=== PATIENT | female | born 1985 | race Caucasian/White ===

== ENCOUNTER 2018-04-05 09:26 | Emergency (ER) | payer OTHER ==
[~2018-04-05] VITALS: Ht 157.5 cm; Wt 129.3 kg
[~2018-04-05 09:26] MED LIST: NAPROXEN500 M2 PO
[2018-04-05 09:56] VITALS: BP 112/76
--- NOTE | 2018-04-05 10:32 | RADIOLOGY REPORT ---
EXAMINATION: XR CHEST CLINICAL INFORMATION: Shortness of breath and productive cough for 3 weeks. Denies chance of . Rule out bronchitis versus pneumonia. COMPARISON: None TECHNIQUE: 2 views of the chest were obtained. FINDINGS: The cardiomediastinal silhouette is within normal limits in size. Lungs bilaterally are symmetrically expanded and clear. No focal consolidation, effusion or pneumothorax is seen. Bony structures are unremarkable. IMPRESSION: Unremarkable examination. No evidence of pneumonia.
--- NOTE | 2018-04-05 12:09 | ED INFLUENZA/URI COMPLAINT ---
History of Present Illness General Chief Complaint: General Adult Stated Complaint: COUGH X 3 WEEKS Source: patient Exam Limitations: no limitations Vital Signs & Intake/Output Vital Signs & Intake/Output Vital Signs Date Time Temp Pulse Resp B/P B/P Pulse O2 O2 Flow FiO2 Mean Ox Delivery Rate 04/05 1214 98 Room Air 04/05 0956 98.1 68 18 112/76 98 Room Air Allergies Coded Allergies: No Known Allergies (03/15/16) Reconcile Medications Benzonatate (Tessalon Perle) 100 MG CAPSULE 1 CAP PO TID cough Fluticasone Propionate (Flonase Allergy Relief) 50 MCG/ACTUATION SPRAY.SUSP 1 SPRAY NASB DAILY allergies Naproxen 500 MG TABLET 1 TAB PO BID PRN pain/swelling Polymyxin B Sulf/Trimethoprim (Polymyxin B-Tmp Eye Drops) 10,000 UNIT-1 MG/ML DROPS 1 GTT OPH TID conjunctivitis Prednisone 20 MG TABLET 1 TAB PO BID uri Triage Note: 32F WITH MILD PRODUCTIVE COUGH W THOMSON SPUTUM X3 WEEKS AND SUBECTIVE WHEEZING. +SMOKER. NO OBVIOUS RESP DISTRESS OBSERVED, ABLE TO PLAY WITH SON IN TRIAGE. O2 SAT 99% RA. ALSO WOKE UP WITH MORNING WITH RED, ITCHY EYE WITH CRUSTING. AFEBRILE Triage Nurses Notes Reviewed? 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 She reports sputum production that ranges from clear to yellow. She has tried [id number] allergy medication with no relief. 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 She has had the flu vaccine this year. She declines fever, chills, nausea, vomiting. She also declines nasal discharge and congestion. Patient does report 1 day history of left eye redness and irritation. She reports that there has been some puffiness around her left eye as well. She denies any contact use. She does report that this morning she had some yellow discharge in her left eyelashes and was difficult to open her eye. Past History Travel History Traveled to [place] past 21 day No Medical History Any Pertinent Medical History? see below for history Neurological: NONE EENT: NONE Cardiovascular: NONE Respiratory: NONE Gastrointestinal: NONE Hepatic: NONE Renal: NONE Musculoskeletal: NONE Psychiatric: NONE Endocrine: NONE Blood Disorders: DVT Cancer(s): NONE Surgical History Surgical History: non-contributory Psychosocial History What is your primary language Martiniquais Tobacco Use: Current Daily Use Daily Tobacco Use Amount/Type: => 5 Cigarettes daily Family History Hx Contributory? No Review of Systems Review of Systems Constitutional: Reports: no symptoms. EENTM: Reports: no symptoms. Respiratory: Reports: see HPI. Cardiovascular: Reports: no symptoms. GI: Reports: no symptoms. Genitourinary: Reports: no symptoms. Musculoskeletal: Reports: no symptoms. Skin: Reports: no symptoms. Neurological/Psychological: Reports: no symptoms. Hematologic/Endocrine: Reports: no symptoms. Immunologic/Allergic: Reports: no symptoms. All Other Systems: Reviewed and Negative Physical Exam Physical Exam General Appearance: well developed/nourished, no apparent distress, alert, awake Head: atraumatic, normal appearance Eyes: Left: other (injected conjunctiva). Ears, Nose, Throat: hearing grossly normal, pharynx normal Neck: normal inspection, full range of motion Respiratory: normal breath sounds, no respiratory distress, lungs clear Cardiovascular: regular rate/rhythm Back: normal range of motion Extremities: normal inspection, normal range of motion Neurologic/Psych: no motor/sensory deficits, awake, alert, oriented x 3, normal gait, normal mood/affect Skin: intact, normal color, warm/dry Core Measures Sepsis Present: No Sepsis Focused Exam Completed? No Progress Differential Diagnosis: influenza, pneumonia, sinusitis, allergies, conjunctivitis of l eye - allergic vs bacterial vs viral Plan of Care: Orders Procedure Date/time Status RAPID VIRAL INFLUENZA A 04/05 1205 Complete Microbiology 04/05 1211 NASOPHARYN: Influenza Virus A & B Rapid Smear - COMP Diagnostic Imaging: Viewed by Me: Radiology Read. Discussed w/RAD: Radiology Read. Radiology Impression: PATIENT: MALIK MCLEAN PRESENT AGE: 32 PATIENT ACCOUNT NO: [id number] : 86 LOCATION: [facility] ORDERING PHYSICIAN: Forrest Cesar DO (TBS) SERVICE DATE: 04/05/18 EXAM TYPE: RAD - XRY-CHEST XRAY, TWO VIEWS EXAMINATION: XR CHEST CLINICAL INFORMATION: Shortness of breath and productive cough for 3 weeks. Denies chance of . Rule out bronchitis versus pneumonia. COMPARISON: None TECHNIQUE: 2 views of the chest were obtained. FINDINGS: The cardiomediastinal silhouette is within normal limits in size. Lungs bilaterally are symmetrically expanded and clear. No focal consolidation, effusion or pneumothorax is seen. Bony structures are unremarkable. IMPRESSION: Unremarkable examination. No evidence of pneumonia. DICTATED BY: Marii Mehta MD DATE/TIME DICTATED:04/05/181027 VENTILATION WORKER:ARIANA DATE/TIME TRANSCRIBED:04/05/181027 CONFIDENTIAL, DO NOT COPY WITHOUT APPROPRIATE AUTHORIZATION. <Electronically signed in Other Vendor System> SIGNED BY: Marii Mehta MD 04/05/18 1032 Initial ED EKG: none Departure Departure Disposition: HOME OR SELF CARE Condition: Stable Clinical Impression Primary Impression: Allergic Qualifiers: Encounter type: initial encounter Qualified Code: T78.40XA - Allergy, unspecified, initial encounter Secondary Impressions: Bronchitis, acute Qualifiers: Bronchitis organism: unspecified organism Qualified Code: J20.9 - Acute bronchitis, unspecified Conjunctivitis of left eye Qualifiers: Conjunctivitis type: acute Acute conjunctivitis type: unspecified Qualified Code: H10.32 - Unspecified acute conjunctivitis, left eye Referrals: Mario KEITA,Darci Jones (PCP/Family) Additional Instructions: Use prednisone twice a day for 5 days as prescribed. Use Flonase 2 sprays per nostril every day. Use Tessalon Perles as directed for cough as needed. Increase fluids. Using antibiotic drops in the affected eye daily as needed. Return to the emergency department with concerning symptoms or worsening symptoms. Follow-up with primary care outpatient as needed. Departure Forms: Customer Survey General Discharge Information Prescriptions: Current Visit Scripts Prednisone 1 TAB PO BID #10 TAB Fluticasone Propionate (Flonase Allergy Relief) 1 SPRAY NASB DAILY #1 BOT Benzonatate (Tessalon Perle) 1 CAP PO TID #15 CAP Polymyxin B Sulf/Trimethoprim (Polymyxin B-Tmp Eye Drops) 1 GTT OPH TID 7 Days Comments 32-year-old female presented to the emergency department with 3 weeks of a cough. Chest x-ray was normal, no signs of pneumonia. Flu swab was also negative. Patient given prescription for prednisone, Tessalon Perles, and Flonase. She was explained directions for use. She was also prescribed polymyxin trimethoprim drops for her left eye for potential bacterial conjunctivitis. She is encouraged to follow-up outpatient with her primary care provider. She should return to the emergency department with any worsening symptoms or concerning symptoms. She understands the plan.
[2018-04-05] MEDS ORDERED: POLYMYXIN B-TMP10 ML OPH (13:10)
[2018-04-05] MEDS ORDERED: TESSALON PERLE100 M1 PO (13:10)
[2018-04-05] MEDS ORDERED: PREDNISONE20 M1 PO (13:10)
[2018-04-05] MEDS ORDERED: FLONASE ALLERG9.9 ML NASB (13:10)
== END 2018-04-05 13:35 ==
LOC: ERH 09:26
DX: T78.40XA Allergy, unspecified, initial encounter (principal); J20.9 Acute bronchitis, unspecified; H10.9 Unspecified conjunctivitis
CPT/HCPCS: 71046; 87804; 87804-59